=== PATIENT | female | born 1990 | race Caucasian/White ===

== ENCOUNTER 2016-12-14 19:27 | Inpatient (IN) | payer OTHER, MEDICAID ==
[~2016-12-14] VITALS: Ht 160 cm; Wt 65.3 kg
[2016-12-14 20:50] VITALS: BP 125/73; PULSE 113; RESP 18
[2016-12-14] MEDS ORDERED: DOCO200C5 PO (20:55)
[2016-12-14] MEDS ORDERED: LIDOCAINE 1% (MPF) 30 ML INJ INJ PRN (21:00)
[2016-12-14] MEDS ORDERED: OXYTOCIN 30 UNITS/LR 500 ML IV SCH ×3 (21:00)
[2016-12-14] MEDS ORDERED: MISOPROSTOL 200 MCG TAB PR PRN (21:00)
[2016-12-14] MEDS ORDERED: AMPICILLIN 2 GM/NS (PMX) 100 ML IV ONE (21:00)
[2016-12-14] MEDS ORDERED: METHYLERGONOVINE 0.2 MG INJ IM PRN (21:00)
[2016-12-14] MEDS ORDERED: BUTORPHANOL 2 MG INJ IV PRN (21:00)
[2016-12-14] MEDS ORDERED: OXYTOCIN 30 UNITS/LR 500 ML IV PRN (21:00)
[2016-12-14] MEDS ORDERED: CARBOPROST 250 MCG INJ IM PRN (21:00)
[2016-12-14] MEDS ORDERED: IBUPROFEN 600 MG TAB PO PRN (21:00)
--- NOTE | 2016-12-14 21:07 | TRIAGE ---
OB Triage Datetime Report Generated by CPN: 12/14/2016 21:07 Datetime: 12/14/2016 20:39 Stage of : OB Triage Labor Evaluation Monitor Mode: External Pattern: Normal: <= 5 Contractions in 10 Minutes Resting Tone [place]: Relaxed Heart Rate FHR Baseline Rate: 135 Monitor Mode: External US FHR Baseline Changes: No Baseline Change Variability: Moderate 6-25 bpm Accelerations: 15X15 Decelerations: None Category: Category I Pain Assessment Pain Scale: 2 Pain Presence: Intermittent Pain Type: Cramping Vaginal Exam Dilatation (cms): 1.0 Effacement (%): 70 Station: 0 Exam By: Quintin Epperson Membrane Status: Ruptured Amniotic Fluid Color: Clear Amniotic Fluid Amount: Moderate Amniotic Fluid Odor: Normal Vaginal Bleeding: Scant Pool: Positive Nitrazine: Positive Cervix, Consistency: Soft Cervix, Position: Posterior Presentation 'A': Cephalic Datetime: 12/14/2016 20:00 Time of Arrival: 12/14/2016 19:20 EGA: 40.4 Arrived By: Wheelchair Arrived From: Home Chief Complaint: c/o leaking mod amt fluid since 1530. Denies hx problems this Movement: Present Contractions: Denies/Absent Rupture of Membranes: Ruptured Vaginal Bleeding: None Vaginal Discharge: Present Recent Sexual Intercouse: Denies Abdominal Trauma: Not Applicable Patient Complaints: Other Time Provider Notified: 12/14/2016 19:35 Provider Notified: Dr Ruano Initial Plan: ROSANNE HAGAN
--- NOTE | 2016-12-14 21:48 | HP ---
Date/Time of Note Date/Time of Note DATE: 12/14/16 TIME: 21:38 OB - History Hx of Present Free Text/Dictation 26 y.o primigravida at 40w4d presented to triage with c/o leaking fluid since 1529. had unevenful course except 1st trimester vaginal spotting. initial ve with confirmation of srom admitted for pitocin augmentation Chief Complaint: SROM at 1530 Estimated Due Date: Dec 10, 2016 : 1 Para: 0 Spontaneous : 0 Therapeutic : 0 Care: Good Care Ultrasounds: No ultrasounds, Normal mid trimester US Obstetrical Complications: None Medical Complications: None Past Family/Social History * Past Medical, Surgical, Family and Obstetric Histories reviewed from chart. Blood Type: O+ Rubella: immune RPR/VDRL: Negative GBS Status: Negative HBsAG: Negative OB Admission Exam Vital Signs Vital Signs Vital Signs Date Time Temp Pulse Resp B/P Pulse Ox O2 Delivery O2 Flow Rate FiO2 12/14/16 20:50 98.7 113 18 125/73 Room Air Physical Exam HEENT: WNL Heart: Rhythm Normal Lungs: Clear, Equal Abdomen: WNL Extremities: Normal Reflexes: Normal Cervical Dilatation: 1cm Effacement: 75% Station: 0 Membranes: Ruptured Amniotic Fluid: Clear Heart Rate: 130's Accelerations: Accelerations Present Decelerations: No Decelerations Varibility: Moderate Contractions on Admission: 6-10 Minutes Apart Intensity: Mild OB Assessment/Plan Reason for admission: rupture of membranes Other Assessment: IUP 40w4d Plan: Other (augmenttation) Induction Method: per Pitocin Protocol DANNY GARCIA MD Dec 14, 2016 21:48
[2016-12-14] MEDS: LACTATED RINGER'S 1,000 ML IV SCH (21:55)
[2016-12-14 22:20] LABS: ABNORMAL IP MESSAGE 1; BASOPHILS % 0.1 % (0.0-2.0); EOSINOPHILS # 0.1 10^3/ul (0.0-0.5); EOSINOPHILS % 1.2 % (0.0-7.0); HEMATOCRIT 41.1 % (37.0-47.0); HEMOGLOBIN 13.9 g/dl (12.0-16.0); LYMPHOCYTES # 1.6 10^3/ul (0.8-2.9); LYMPHOCYTES % 15.9 % (15.0-51.0); MEAN CORPUSCULAR HEMOGLOBIN 30.4 pg (29.0-33.0); MEAN CORPUSCULAR HGB CONC 33.8 g/dl (32.0-37.0); MEAN CORPUSCULAR VOLUME 89.9 fl (82.0-101.0); MEAN PLATELET VOLUME 13.1 fl (7.4-10.4); MONOCYTE # 1.1 10^3/ul (0.3-0.9); MONOCYTES % 10.7 % (0.0-11.0); NEUTROPHIL # 7.4 10^3/ul (1.6-7.5); NEUTROPHILS % 71.5 % (39.0-77.0); PLATELET COUNT 115 10^3/UL (140-415); RED BLOOD COUNT 4.57 10^6/ul (4.20-5.40); RED CELL DISTRIBUTION WIDTH 13.4 % (11.5-14.5); WHITE BLOOD COUNT 10.3 10^3/ul (4.8-10.8)
[2016-12-14 22:21] LABS: POSITIVE DIFF @See below
[2016-12-14 22:36] LABS: INR 0.85; PROTIME 11.6 Sec (12.2-14.2); PT RATIO 0.9
[2016-12-14 22:37] LABS: PARTIAL THROMBOPLASTIN TIME 27.9 Sec (25.0-35.0)
[2016-12-14] MEDS ORDERED: LACTATED RINGER'S 1,000 ML IV PRN (23:00)
[2016-12-15 00:37] LABS: ALBUMIN 3.5 g/dl (3.3-4.9); ALBUMIN/GLOBULIN RATIO 0.89; BILIRUBIN,INDIRECT 0.1 mg/dl (0-1.1); BILIRUBIN,TOTAL 0.1 mg/dl (0.2-1.3); CALCIUM 9.9 mg/dl (8.4-10.2); CREATININE 0.56 mg/dl (0.44-1.00); POTASSIUM 3.7 mmol/L (3.5-5.1); TOTAL PROTEIN 7.4 g/dl (6.1-8.1); URIC ACID 4.3 mg/dl (3.1-7.9)
[2016-12-15] MEDS ORDERED: AMPICILLIN 1 GM/NS (PMX) 50 ML IV SCH (01:00)
[2016-12-15] MEDS ORDERED: AMPICILLIN 2 GM/NS (PMX) 100 ML ONE (05:28)
[2016-12-15] MEDS ORDERED: ONDANSETRON 4 MG INJ IV PRN (05:30)
[2016-12-15] MEDS ORDERED: FENTAnyl 2MCG/ML-ROPIV 0.2% 100 ML BAG EPI SCH (05:30)
[2016-12-15] MEDS ORDERED: EPHEDrine SULFATE 50 MG/5 ML SYG IV PRN (05:30)
[2016-12-15] MEDS ORDERED: NALOXONE (0.4 MG/ML) INJ IV PRN (05:30)
[2016-12-15] MEDS ORDERED: DIPHENHYDRAMINE 50 MG INJ IV PRN (05:30)
[2016-12-15] MEDS ORDERED: AMPICILLIN 2 GM/NS (PMX) 100 ML IVPB ONE (05:30)
[2016-12-15] MEDS: LACTATED RINGER'S 1,000 ML IV SCH (05:32)
[2016-12-15 07:06] LABS: ADD UMIC NO; UR ASCORBIC ACID NEGATIVE (NEGATIVE); UR BILIRUBIN (Dip) NEGATIVE (NEGATIVE); UR BLOOD (Dip) NEGATIVE (NEGATIVE); UR CLARITY SLIGHTLY CLOUDY (CLEAR); UR COLOR AMBER (YELLOW); UR GLUCOSE (Dip) NEGATIVE (NEGATIVE); UR KETONES (Dip) 1+ mg/dL (NEGATIVE); UR LEUKOCYTE ESTERASE (Dip) NEGATIVE Leu/ul (NEGATIVE); UR NITRITE (Dip) NEGATIVE (NEGATIVE); UR RBC 2 /HPF (0-5); UR SPECIFIC GRAVITY (Dip) 1.019 (1.003-1.030); UR TOTAL PROTEIN (Dip) NEGATIVE (NEGATIVE); UR UROBILINOGEN (Dip) NEGATIVE (NEGATIVE)
[2016-12-15] MEDS ORDERED: DEXTROSE 5%-LR 1,000 ML IV PRN (08:30)
[2016-12-15] MEDS ORDERED: AMPICILLIN 1 GM/NS (PMX) 50 ML IVPB SCH (09:00)
--- NOTE | 2016-12-15 13:18 | LDN ---
Date/Time of Note Date/Time of Note DATE: 12/15/16 TIME: 13:13 Delivery Summary normal vaginal delivery Weeks of Gestation 40w5d Placenta Delivered: Spontaneously Meconium: none Episiotomy: Yes Indication for episiotomy bleeding from vaginal laceration on ironing Laceration repair: MLE 00ch gut Anesthesia type: Epidural Sponge & Needle done & correct: Yes All needle counts correct: Yes Any foreign bodies felt in the: No Problems: Infant Delivery Information Sex Sex: male Apgars 1 Minute: 9 5 Minute: 9 Suctioning Nose & mouth suctioned at joellen: Yes Delee suction performed: No Umbilical Cord Umbilical cord with: 3 Vessels Cord presentations: nuchal cord Nuchal cord present X: 1 Cord Blood was obtained: Yes Mother & Baby Disposition Disposition Mom & Baby to Maternity; Good: Yes Mom transferred to: Other Baby to NICU: No () DANNY GARCIA MD Dec 15, 2016 13:18
[2016-12-15] MEDS ORDERED: MINERAL OIL LIGHT 10 ML VIAL TOP ONE (13:30)
[2016-12-15 16:10] VITALS: BP 121/80; PULSE 97; RESP 20
[2016-12-15] MEDS ORDERED: ZOLPIDEM 5 MG TAB PO PRN (16:30)
[2016-12-15] MEDS ORDERED: CARBOPROST 250 MCG INJ IM PRN (16:30)
[2016-12-15] MEDS ORDERED: BENZOCAINE 20% 56 ML SPRAY TOP PRN (16:30)
[2016-12-15] MEDS ORDERED: OXYTOCIN 30 UNITS/LR 500 ML IV PRN (16:30)
[2016-12-15] MEDS ORDERED: MISOPROSTOL 200 MCG TAB PR PRN (16:30)
[2016-12-15] MEDS ORDERED: LANOLIN 7 GM TUBE TOP PRN (16:30)
[2016-12-15] MEDS ORDERED: WITCH HAZEL/GLYCERIN PAD PR PRN (16:30)
[2016-12-15] MEDS ORDERED: OXYCODONE/ASPIRIN (4.88/325) TAB PO PRN ×2 (16:30)
[2016-12-15] MEDS ORDERED: METHYLERGONOVINE 0.2 MG INJ IM PRN (16:30)
[2016-12-15] MEDS: IBUPROFEN 600 MG TAB PO SCH (17:31)
[2016-12-15 20:05] VITALS: BP 113/63; RESP 19
[2016-12-15] MEDS: SENNA/DOCUSATE NA (8.6MG/50MG) TAB PO SCH (21:37)
[2016-12-16] VITALS: BP 118/72; PULSE 78; RESP 18
[2016-12-16] MEDS: IBUPROFEN 600 MG TAB PO SCH ×5 (00:27→23:30)
[2016-12-16 04:15] VITALS: BP 97/83; PULSE 78; RESP 18
[2016-12-16 08:00] VITALS: BP 101/48; PULSE 85; RESP 18
[2016-12-16 08:41] LABS: BASOPHILS % 0.2 % (0.0-2.0); EOSINOPHILS # 0.2 10^3/ul (0.0-0.5); EOSINOPHILS % 1.3 % (0.0-7.0); LYMPHOCYTES # 2.6 10^3/ul (0.8-2.9); MEAN CORPUSCULAR HEMOGLOBIN 29.3 pg (29.0-33.0); MEAN CORPUSCULAR HGB CONC 32.4 g/dl (32.0-37.0); MEAN CORPUSCULAR VOLUME 90.7 fl (82.0-101.0); MEAN PLATELET VOLUME 12.3 fl (7.4-10.4); MONOCYTE # 1.3 10^3/ul (0.3-0.9); MONOCYTES % 8.3 % (0.0-11.0); NEUTROPHILS % 72.7 % (39.0-77.0); PLATELET COUNT 121 10^3/UL (140-415); RED BLOOD COUNT 3.75 10^6/ul (4.20-5.40); RED CELL DISTRIBUTION WIDTH 14.1 % (11.5-14.5); WHITE BLOOD COUNT 15.1 10^3/ul (4.8-10.8)
[2016-12-16] MEDS: SENNA/DOCUSATE NA (8.6MG/50MG) TAB PO SCH ×2 (10:16→20:32)
--- NOTE | 2016-12-16 11:02 | DS ---
Date/Time of Note Date/Time of Note DATE: 12/16/16 TIME: 11:01 Obstetrical Discharge Record Final Diagnosis Final Diagnosis: Term delivered Vaginal Delivery Obstetrical Delivery: Spontaneous Complications Rupture of Membranes: No Condition on Discharge Physical Assessment Voiding: Yes Bowel Movement: Yes Breast: Soft, non-tender, Filling Fundus: Firm Abdomen and Incision: soft and not tender Episiotomy: no complaints Calf Tenderness: No Patient Condition: Good UJNIOR CHAPMAN MD Dec 16, 2016 11:02
[2016-12-16 15:50] VITALS: BP 114/66; PULSE 84; RESP 18
[2016-12-16 20:15] VITALS: BP 117/63; PULSE 79; RESP 18
[2016-12-17 04:00] VITALS: BP 102/59; PULSE 73; RESP 18
[2016-12-17] MEDS: IBUPROFEN 600 MG TAB PO SCH ×2 (05:31→12:00)
[2016-12-17 08:15] VITALS: BP 94/59; PULSE 68; RESP 16
[2016-12-17] MEDS ORDERED: DIPHTH/TET/ACEL PERTUSS (ADULT) 0.5 ML VIAL IM* ONE (09:00)
[2016-12-17] MEDS: SENNA/DOCUSATE NA (8.6MG/50MG) TAB PO SCH (10:35)
== END 2016-12-17 14:49 | disposition home or self-care (01) | DRG 775 ==
LOC: OBT 19:27 → L-D 19:28 → OBT 20:55 → L-D 20:55 → PP1 12-15 16:15
PROVIDERS: ADMIT Specialist; ATTEND Specialist
PROC: 10E0XZZ Delivery of Products of Conception, External Approach (ICD-10-PCS; principal; 2016-12-14)
PROC: 0UQGXZZ Repair Vagina, External Approach (ICD-10-PCS; 2016-12-14)
PROC: 4A1HXCZ Monitoring of Products of Conception, Cardiac Rate, External Approach (ICD-10-PCS; 2016-12-14)
PROC: 3E0234Z Introduction of Serum, Toxoid and Vaccine into Muscle, Percutaneous Approach (ICD-10-PCS; 2016-12-17)
DX: O48.0 Post-term pregnancy (principal); O71.4 Obstetric high vaginal laceration alone; Z37.0 Single live birth; Z3A.40 40 weeks gestation of pregnancy; Z23 Encounter for immunization
CPT/HCPCS: 62319; 80053; 81001; 81003; 84560; 85025; 85610; 85730; 86592; 86900; 86901; 87340; 90715; G0463; J0290; J0595; J2405; J2590; J3010; J7120